=== PATIENT | male | born 1985 | race Caucasian/White ===

== ENCOUNTER 2017-04-01 20:00 | Emergency (ER) | payer SELFPAY ==
[2017-04-01 20:11] VITALS: BMI 35.4
[2017-04-01 20:14] VITALS: BP 132/85; PULSE 102; RESP 19; TEMP 98.9; O2SAT 99
--- NOTE | 2017-04-01 20:27 | ED PDOC ---
Arrival/HPI <Brian Amador - Last Filed: 04/01/17 23:00> - General Historian: Patient - History of Present Illness Time/Duration: Prior to Arrival Symptom Onset: Sudden <Mary You - Last Filed: 04/02/17 01:50> - General Chief Complaint: Abnormal Skin Integrity Time Seen by Provider: 04/01/17 20:24 - History of Present Illness Narrative History of Present Illness (Text): 04/01/17 20:24 31yr old male presents today with left 3rd finger laceration. pt states he was cutting bread and the knife slipped and he cut the base of the 3rd finger. pt unsure of his last tetanus shot. pt denies numnbess, weakness, tingling in the extremity. denies fever/chills. incident occurred prior to arrival. pt denies any pain at present time. no other complaints. no medications taken at home. ( Mary You) Past Medical History - Provider Review Nursing Documentation Reviewed: Yes - Travel History Have you recently traveled outside [place] w/in the past 3 mons?: No - Infectious Disease Hx of Infectious Diseases: None - Tetanus Immunization Tetanus Immunization: Unknown - Psychiatric Hx Substance Use: No - Anesthesia Hx Anesthesia: No <Mary You - Last Filed: 04/02/17 01:50> Family/Social History - Physician Review Nursing Documentation Reviewed: Yes Family/Social History: Unknown Family HX Smoking Status: Never Smoked Hx Alcohol Use: Yes Frequency of alcohol use: Socially Hx Substance Use: No <Mary You - Last Filed: 04/02/17 01:50> Allergies/Home Meds <Brian Amador - Last Filed: 04/01/17 23:00> <Mary You - Last Filed: 04/02/17 01:50> Allergies/Adverse Reactions: Allergies No Known Allergies Allergy (Verified 04/01/17 20:11) Review of Systems - Review of Systems Constitutional: absent: Fatigue, Fevers Respiratory: absent: SOB, Cough Cardiovascular: absent: Chest Pain Gastrointestinal: absent: Abdominal Pain Musculoskeletal: absent: Arthralgias Skin: Laceration Neurological: absent: Headache <Mary You - Last Filed: 04/02/17 01:50> Physical Exam Vital Signs Reviewed: Yes Temperature: Afebrile Blood Pressure: Normal Pulse: Tachycardic Respiratory Rate: Normal Appearance: Positive for: Well-Appearing, Non-Toxic, Comfortable Pain Distress: None Mental Status: Positive for: Alert and Oriented X 3 - Systems Exam Head: Present: Atraumatic Neck: Present: Normal Range of Motion Respiratory/Chest: Present: Clear to Auscultation, Good Air Exchange. No: Respiratory Distress, Accessory Muscle Use Cardiovascular: Present: Regular Rate and Rhythm, Normal S1, S2. No: Murmurs Upper Extremity: Present: Normal ROM, Neurovascularly Intact, Capillary Refill < 2s, Other (left 3rd finger; there is a 1.5cm linear laceration along the webspacing at the base of the 3rd finger between the 2nd and 3rd finger. full rom of finger. sensation and distal pulses intact. cap refill <2. no active bleeding. ). No: Tenderness, Swelling, Erythema Neurological: Present: GCS=15 Skin: Present: Warm, Dry Psychiatric: Present: Alert, Oriented x 3 <Mary You - Last Filed: 04/02/17 01:50> Vital Signs Temp Pulse Resp BP Pulse Ox 04/01/17 20:13 98.9 F 102 H 19 132/85 99 Medical Decision Making <Brian Amador - Last Filed: 04/01/17 23:00> <Mary You - Last Filed: 04/02/17 01:50> ED Course and Treatment: 04/01/17 20:29 Patient is nontoxic well appearing in no distress. Vital signs are stable. Wound irrigated well with high pressure irrigation Tetanus updated Motrin Laceration repair: 3 sutures placed Bacitracin and dressing applied pt with slight decreased sensation to distal tip of finger along the lateral aspect; possible nerve injury from laceration; stressed importance of f/u with hand specialist. Patient was advised to keep the wound clean and dry, apply bacitracin twice daily. Advised to return immediately if signs of infection develop or return if any other concerning symptoms develop. advised return in 7-10 days for suture removal. Impression: Laceration, finger Motrin every 6 hours as needed for pain keflex; 4 times daily x 5 days. Keep the wound clean and dry, apply bacitracin twice daily Return in 7-10 days for suture removal Return immediately if signs of infection develop: High fevers, increasing pain, redness, swelling, purulent discharge Followup with primary care physician within the next 2 days Return if any other concerning symptoms develop (Mary You) - Medication Orders Current Medication Orders: Discontinued Medications Ibuprofen (Motrin Tab) 600 mg PO STAT STA Stop: 04/01/17 21:10 Last Admin: 04/01/17 21:39 Dose: 600 mg Lidocaine HCl (Lidocaine 1% (20ml)) Confirm Administered Dose 20 ml .ROUTE .STK- MED ONE Stop: 04/01/17 21:40 Tetanus/Reduced Diphtheria/Acell Pertussis (Boostrix Vaccine Inj) 0.5 ml IM .ONCE ONE Stop: 04/01/17 21:10 Last Admin: 04/01/17 22:10 Dose: 0.5 ml Procedure: Wound Repair - Procedure Procedure: Wound Repair: laceration, finger - Consent Obtained Consent obtained: Verbal - Performed by Performed by: Mid-level Provider - Indications Indication(s):: Laceration - Location Location:: Left Finger:: Left, Middle Shape:: Linear Dimensions Length cm: 1.5cm Depth:: Epidermis - Anesthetic Technique Local/Regional Anesthetic:: Lidocaine 1% (2cc) - Wound Examination Wound Examination:: Nerve Injury (? injury to lateral nerve in finger) - Debris Debris:: None - Irrigated Irrigated with ml of normal saline: copious amounts of NS using high pressure irrigation - Complexity Complexity:: Simple (one layer) - Wound repair method Sutures:: # (3), Size (5.0), Type (nylon), Technique (interrupted) - Complications Complications: none - Patient tolerated procedure Patient Tolerated Procedure:: Well <Mary You - Last Filed: 04/02/17 01:50> - PA / EDUCATION ADMINISTRATIVE ASSISTANT / Resident Statement / has reviewed & agrees with the documentation as recorded. <Brian Amador - Last Filed: 04/01/17 23:00> Disposition/Present on Arrival <Brian Amador - Last Filed: 04/01/17 23:00> - Present on Arrival Any Indicators Present on Arrival: No History of DVT/PE: No History of Uncontrolled Diabetes: No Urinary Catheter: No History of Decub. Ulcer: No History Surgical Site Infection Following: None - Disposition Have Diagnosis and Disposition been Completed?: Yes Disposition Time: 20:34 Patient Plan: Discharge <Mary You - Last Filed: 04/02/17 01:50> - Disposition Diagnosis: Laceration of finger Disposition: HOME/ ROUTINE Patient Problems: Current Active Problems Problem Status Onset Laceration of finger Acute Condition: GOOD Discharge Instructions (ExitCare): Care For Your Stitches (ED), Laceration (ED) Additional Instructions: Motrin every 6 hours as needed for pain keflex; 4 times daily x 5 days. Keep the wound clean and dry, apply bacitracin twice daily Return in 7-10 days for suture removal Return immediately if signs of infection develop: High fevers, increasing pain, redness, swelling, purulent discharge Followup with primary care physician within the next 2 days Return if any other concerning symptoms develop Prescriptions: Bacitracin OINT 1 applic TP BID #1 tube Cephalexin [Keflex] 500 mg PO QID #20 capsule Ibuprofen [Motrin] 600 mg PO Q6H PRN #20 tab PRN Reason: pain/fever reduction [place]: [facility] [place] - Follow up with primary Nayely Jimenez MD [Staff Provider] - Follow up with primary
[2017-04-01] MEDS ORDERED: TDAP Vaccine 0.5 mL Syr IM ONE (21:09)
[2017-04-01] MEDS ORDERED: Lidocaine 1% Inj (20ml) ONE (21:39)
== END 2017-04-03 07:40 | disposition home or self-care (01) ==
LOC: ED 20:00
DX: S61.213A Laceration without foreign body of left middle finger without damage to nail, initial encounter (principal); W26.0XXA Contact with knife, initial encounter; Y93.G1 Activity, food preparation and clean up; Y92.89 Other specified places as the place of occurrence of the external cause; Z23 Encounter for immunization

== ENCOUNTER 2018-07-23 12:19 | Emergency (ER) | payer OTHER ==
[2018-07-23 12:20] VITALS: BMI 35.4
[2018-07-23 12:29] VITALS: RESP 16
--- NOTE | 2018-07-23 13:53 | ED PDOC ---
Arrival/HPI - General Historian: Patient - History of Present Illness Narrative History of Present Illness (Text): 32yo male, comes to ER reporting a worsening right sided testicular pain, present intermittently for the past couple weeks. He denies any associated urinary symptoms, or penile discharge. Patient also denies any abdominal pain, nausea or vomiting. He reports being sexually active with one partner. Patient states he was seen by his PMD and had urine, STD testing done; patient was advised by his PMD to have a testicular US as well. Otherwise, no additional medical complaints. Time/Duration: > month Symptom Onset: Gradual Symptom Course: Worsening <Mary You - Last Filed: 07/23/18 18:25> <Fracisco Worrell - Last Filed: 07/25/18 17:49> - General Chief Complaint: Male Genitourinary Time Seen by Provider: 07/23/18 12:30 Past Medical History - Provider Review Nursing Documentation Reviewed: Yes - Infectious Disease Hx of Infectious Diseases: None - Tetanus Immunization Tetanus Immunization: Unknown - Psychiatric Hx Psychophysiologic Disorder: No Hx Substance Use: No - Surgical History Other/Comment: LACERATED FINGER SUTURING. - Anesthesia Hx Anesthesia: No <Mary You - Last Filed: 07/23/18 18:25> Family/Social History - Physician Review Nursing Documentation Reviewed: Yes Family/Social History: No Known Family HX Smoking Status: Never Smoked Hx Alcohol Use: Yes Frequency of alcohol use: Socially Hx Substance Use: No <Mary You - Last Filed: 07/23/18 18:25> Allergies/Home Meds <Mary You - Last Filed: 07/23/18 18:25> <Fracisco Worrell - Last Filed: 07/25/18 17:49> Allergies/Adverse Reactions: Allergies No Known Allergies Allergy (Verified 07/23/18 12:22) Review of Systems - Physician Review All systems were reviewed & negative as marked: Yes (as per HPI) - Review of Systems Constitutional: absent: Fevers Respiratory: absent: SOB Cardiovascular: absent: Chest Pain Gastrointestinal: absent: Abdominal Pain, Diarrhea, Nausea, Vomiting Genitourinary Male: Other (right testicular pain). absent: Dysuria, Frequency, Hematuria, Urinary Output Changes Skin: absent: Rash, Skin Lesions <Mary You - Last Filed: 07/23/18 18:25> Physical Exam Vital Signs Reviewed: Yes Vital Signs Temp Pulse Resp BP Pulse Ox 07/23/18 12:22 98.9 F 93 H 16 131/82 96 Temperature: Afebrile Blood Pressure: Normal Pulse: Regular Respiratory Rate: Normal Appearance: Positive for: Well-Appearing, Non-Toxic, Comfortable Pain Distress: None Mental Status: Positive for: Alert and Oriented X 3 - Systems Exam Head: Present: Atraumatic Mouth: Present: Moist Mucous Membranes Neck: Present: Normal Range of Motion Respiratory/Chest: Present: Clear to Auscultation Cardiovascular: Present: Regular Rate and Rhythm, Normal S1, S2. No: Murmurs Abdomen: Present: Normal Bowel Sounds. No: Tenderness, Distention, Peritoneal Signs, Rebound, Guarding Genitourinary Male: Present: Normal External Genitalia, Testicle Tenderness (+ minimal right sided tenderness), Other (chaparoned by Kedar THAO). No: Circumcised Penis, Penile Discharge, Penile Swelling, Masses, Erythema, Hernias, Testicle Swelling Neurological: Present: GCS=15, Speech Normal Skin: Present: Warm, Dry, Normal Color. No: Rashes Psychiatric: Present: Alert, Oriented x 3 <Mary You T - Last Filed: 07/23/18 18:25> Vital Signs Temp Pulse Resp BP Pulse Ox 07/23/18 15:11 98.8 F 90 16 133/88 97 07/23/18 12:22 98.9 F 93 H 16 131/82 96 <Fracisco Worrell - Last Filed: 07/25/18 17:49> Medical Decision Making ED Course and Treatment: Impression: 32yo male with right sided testicular pain Plan: -- US Testes -- Urinalysis -- Chlamydia/GC RNA, TMA -- Reassess and disposition Progress Notes: Patient is nontoxic well-appearing no distress stable vital signs refusing any medication for pain Testicular ultrasound shows no torsion, bilateral hydroceles and right-sided varicocele. Small right-sided epididymal head cyst. UA shows no sign of infection. Gonorrhea and Chlamydia cultures are pending. We'll discharge patient home to follow-up with the urologist. Advised may return if symptoms worsen persist or new concerning symptoms develop Patient verbalizes understanding of discharge instructions and need for immediate followup. all aspects of this case were discussed the attending of record. Impression: Testicular pain, varicocele, hydrocele Motrin every 6 hours as needed for pain Follow up with urologist within the next 2 days Follow-up the primary care physician within the next 2 days Return immediately if symptoms worsen persist or if new concerning symptoms develop - RAD Interpretation Radiology Orders: 07/23/18 12:31 TESTES DUPLEX COMPLETE [US] Stat <Mary You - Last Filed: 07/23/18 18:25> ED Course and Treatment: 07/25/18 17:49 The documented history was done by the physician senior production planner. The documented physical exam was done by the physician senior production planner. The documented procedures were done by the physician senior production planner, I was available for consultation during the PA/ELECTRICAL TRANSMISSION ENGINEER evaluation. The chart was reviewed by me, and I agree with the management and plan. - Lab Interpretations Lab Results: Lab Results 07/23/18 14:11: Urine Color Yellow, Urine Appearance Clear, Urine pH 6.0, Ur Specific [place] 1.010, Urine Protein Negative, Urine Glucose (UA) Negative, Urine Ketones Negative, Urine Blood Negative, Urine Nitrate Negative, Urine Bilirubin Negative, Urine Urobilinogen 0.2, Ur Leukocyte Esterase Negative - RAD Interpretation Radiology Orders: 07/23/18 12:31 TESTES DUPLEX COMPLETE [US] Stat <Fracisco Worrell - Last Filed: 07/25/18 17:49> - PA / ELECTRICAL TRANSMISSION ENGINEER / Resident Statement MD/DO has reviewed & agrees with the documentation as recorded. - Scribe Statement The provider has reviewed the documentation as recorded by the Anthony Farrar Provider Scribe Attestation: All medical record entries made by the Scribtiffanie were at my direction and personally dictated by me. I have reviewed the chart and agree that the record accurately reflects my personal performance of the history, physical exam, medical decision making, and the department course for this patient. I have also personally directed, reviewed, and agree with the discharge instructions and disposition. <Mary You - Last Filed: 07/23/18 18:25> Disposition/Present on Arrival - Present on Arrival Any Indicators Present on Arrival: No History of DVT/PE: No History of Uncontrolled Diabetes: No Urinary Catheter: No History of Decub. Ulcer: No History Surgical Site Infection Following: None - Disposition Have Diagnosis and Disposition been Completed?: Yes Disposition Time: 14:00 Patient Plan: Discharge <Mary You Concha - Last Filed: 07/23/18 18:25> <Fracisco Worrell - Last Filed: 07/25/18 17:49> - Disposition Diagnosis: Testicular pain Disposition: HOME/ ROUTINE Condition: GOOD Discharge Instructions (ExitCare): Hydrocele, Varicocele Additional Instructions: Motrin every 6 hours as needed for pain Follow up with urologist within the next 2 days Follow-up the primary care physician within the next 2 days Return immediately if symptoms worsen persist or if new concerning symptoms develop Prescriptions: Ibuprofen [Motrin] 600 mg PO Q6H PRN #20 tab PRN Reason: pain/fever reduction Referrals: [facility] [Outside] - Follow up with primary Jovany Thakkar MD [Staff Provider] - Follow up with primary Jak Zacarias MD [Staff Provider] - Follow up with primary Sagrario Diaz MD [Medical Doctor] - Follow up with primary Forms: [employer] [facility] ([place]), WORK NOTE
[2018-07-23 14:15] LABS: URINE BILIRUBIN NEGATIVE (NEGATIVE); URINE BLOOD NEGATIVE (NEGATIVE); URINE GLUCOSE (UA) NEGATIVE (NEGATIVE); URINE LEUKOCYTE ESTERASE NEGATIVE Leu/uL (NEGATIVE); URINE PROTEIN NEGATIVE mg/dL (<30 mg/dL); URINE UROBILINOGEN 0.2 E.U./dL (<1 E.U./dL)
[2018-07-23 14:22] LABS: URINE APPEARANCE CLEAR (CLEAR); URINE COLOR YELLOW (YELLOW)
--- NOTE | 2018-07-23 15:12 | US ---
Date of service: 07/23/2018 HISTORY: Testicular pain TECHNIQUE: Realtime sonography through the scrotum with color and doppler flow. COMPARISON: None. FINDINGS: RIGHT TESTICLE: Measures 4.3 x 2.1 x 2.8 cm. Normal echotexture and flow. RIGHT EPIDIDYMIS: Epididymal head measures 0.8 x 0.8 x 0.6 cm. There is a 2 x 2 x 2 mm simple cyst in the head of the epididymis, otherwise normal in echotexture with normal flow. LEFT TESTICLE: Measures 4.2 x 1.8 x 2.5 cm. Normal echotexture and flow. LEFT EPIDIDYMIS: Epididymal head measures 0.9 x 0.9 x 0.7 cm. There is a 4 x 3 x 3 mm cyst in the head of the epididymis. Otherwise normal in echotexture with normal flow. HYDROCELE: There are bilateral small hydroceles. VARICOCELE: There is a small right varicocele. OTHER FINDINGS: None. IMPRESSION: 1. No evidence for testicular mass or torsion. 2. No epididymal orchitis. 3. Solitary subcentimeter simple cyst in the head of both epididymis, larger on the left. 4. Small right varicocele. 5. Bilateral small hydroceles
[2018-07-23 15:33] VITALS: BP 133/88; PULSE 90; TEMP 98.8; O2SAT 97
== END 2018-07-23 15:11 | disposition home or self-care (01) ==
LOC: ED 12:19
DX: N50.811 Right testicular pain (principal)